=== PATIENT | male | born 2000 | race Caucasian/White ===

== ENCOUNTER 2024-12-22 15:44 | Outpatient (CLI) | payer OTHER, SELFPAY ==
--- NOTE | 2024-12-22 15:30 | RT.EKG_ITS ---
APPROVED REPORT Exam: Resting ECG Reason for Exam: Chest discomfort Patient Location: O HR:74 bpm ECG Measurements Heart Rate 74 AXIS ID 157 P 85 QRSd 96 QRS 86 QT 381 T 76 QTc 423 Conclusion Sinus rhythm...normal P axis, V-rate 50- 99 Normal Electrocardiogram
== END 2024-12-22 15:45 | disposition home or self-care (01) ==
LOC: DI.CM 15:44
PROVIDERS: Visit Provider Nurse Practitioner Family
DX: R07.89 Other chest pain (principal)
CPT/HCPCS: 93010

== ENCOUNTER 2024-12-22 16:32 | Emergency (ER) | payer OTHER, SELFPAY ==
--- NOTE | 2024-12-22 16:30 | RT.EKG_ITS ---
APPROVED REPORT Exam: Resting ECG Reason for Exam: chest pain Patient Location: E HR:82 bpm ECG Measurements Heart Rate 82 AXIS MD 129 P 84 QRSd 94 QRS 88 QT 370 T 67 QTc 432 Conclusion Sinus rhythm...normal P axis, V-rate 60- 99 Probable inferior infarct, old...Q>35mS, II III aVF ST elevation, consider anterolateral injury...ST >0.15mV, I aVL V2-V6 NSR at 82. Normal [place]/Interval. Early repolarization. There are no significant changes compared to prior EKG performed on 12/22/2024 at 15:48.
[2024-12-22 16:42] VITALS: BP 115/68; PULSE 82; RESP 20; TEMP 37.1; O2SAT 97
--- NOTE | 2024-12-22 16:45 | DI.RAD_ITS ---
Exam(s) XR CHEST 2V PA LATERAL EXAM: XR CHEST 2V PA LATERAL CLINICAL HISTORY: Chest pain. TECHNIQUE: 2D digital imaging was performed. COMPARISON: No exams were available for comparison FINDINGS: 2 views: Heart size is normal. The mediastinum is not widened. Lungs are clear. No infiltrates nor pleural effusions. IMPRESSION: No acute pulmonary findings. DATA REPOSITORY: RADIATION DOSE DELIVERED:
--- NOTE | 2024-12-22 17:08 | ED.GENADUL_ITS ---
Discharge Plan Disposition Patient Disposition: Home Condition: Stable Discharge Details Clinical Impression: Cocaine abuse, Myalgia Primary Care Provider: Unknown,Unknown ED Provider: Carla Reddy Home Meds and New Rx's Prescriptions: No Action No Known Home Meds Discharge Instructions Instructions: Cocaine use disorder, Substance Misuse Treatment Additional Instructions: At this time, no evidence for heart attack. I do believe that your symptoms are caused from your recent cocaine and alcohol use. Cocaine use can increase your risk for heart problems. Please call the [facility] to discuss options for outpatient substance abuse treatment. Follow up with primary care provider in 3-5 days. Return to ED sooner if any worsening or concerns. Increase oral fluids. No evidence of abnormal electrolytes today or urinary tract infection. Please take Tylenol or Ibuprofen with food every 4-6 hours as needed for pain and swelling. Stand Alone Forms: Portal Information Referrals: [facility] [Outside] - 2 days Referral Note: Please call to speak with someone about substance abuse Clinical Impression: Cocaine abuse Primary Care Provider [Outside] - 1 week Discharge Data Discharge Date/Time-TO BE ENTERED AT DEPARTURE: 12/22/24 18:36 HPI General Mode of arrival: ambulatory . Date/Time Provider Initiated Documentation: 12/22/24 16:43 . Limitations to Documentation: no limitations . Information obtained by: patient, RN notes reviewed and old records reviewed . HPI Narrative: 24-year-old male presents ER chief with bodyaches, arm weakness patient doing any chest pain he has a follow-up with's pain management for approximately 1 week. Presenting to express care with heart racing, headache, and skin crawling. 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 He also endorses daily alcohol does not use alcohol today and is a daily smoker. EKG performed upon arrival which shows some repolarization abnormalities and ST elevations in the Anteriorlateral leads. Related Data Home Medications Medication Instructions Recorded Confirmed Unknown [No Known Home Meds] 12/22/24 Allergies Allergy/AdvReac Type Severity Reaction Status Date / Time No Known Allergies Allergy Verified 12/22/24 15:26 General Stated Complaint: [facility] [place]: 3 Review of Systems All systems reviewed & are unremarkable except as noted in HPI and below Exam Narrative Exam Narrative: Constitutional: Alert and oriented x3. Appears stated age. Normal body habitus. Head: Normocephalic, no trauma. Eyes: Pupils PERRL, Red reflex noted, EOM's intact. Eyelids symmetrical without lesions, discharge, or swelling. ENT: Bilateral TM's WNL, External ear normal to inspection, no mastoid TTP, swelling, or erythema, Nasal turbinates WNL, no nasal discharge. Normal dentition, Posterior pharynx WNL, no exudate. Chest: RRR, Normal S1, S2, distal pulses intact. Resp: Lungs clear to auscultation bilaterally, no wheezes, rales, or rhonchi. Abdomen: Soft, non-distended, Normoactive bowel sounds all 4 quads. Musculoskeletal: Normal gait, Moves all 4 extremities without difficulty. Skin: No suspicious rashes or lesions. Capillary refill less than 2 sec. Neurologic: Cranial nerves II-XII intact. Alert and oriented x 3. Motor: No deficits noted. Sensory: Intact bilaterally all 4 extremities. Hematologic/Lymphatic: No ecchymosis, no lymphadenopathy. Patient Course Vital Signs Vital signs: Vital Signs Temperature 37.1 C 12/22/24 16:42 Pulse 82 12/22/24 16:42 Respiratory Rate 20 12/22/24 16:42 Blood Pressure 115/68 12/22/24 16:42 Pulse Oximetry 97 12/22/24 16:42 Temperature 37.1 C 12/22/24 16:42 Temperature Source Oral 12/22/24 16:42 Pulse 82 12/22/24 16:42 Respiratory Rate 20 12/22/24 16:42 Blood Pressure 115/68 12/22/24 16:42 Blood Pressure Position Sitting 12/22/24 16:42 Pulse Oximetry 97 12/22/24 16:42 Oxygen Delivery Method Room Air 12/22/24 16:42 Oxygen Flow Rate 0 12/22/24 16:42 Pain Level 5 12/22/24 16:42 Medical Decision Making 24-year-old male presents ER chief with bodyaches, arm weakness patient doing any chest pain he has a follow-up with's pain management for approximately 1 week. Presenting to express care with heart racing, headache, and skin crawling. 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 He also endorses daily alcohol does not use alcohol today and is a daily smoker. EKG performed upon arrival which shows some repolarization abnormalities and ST elevations in the Anteriorlateral leads. Workup ordered including serial troponins, CBC CMP urinalysis, ethyl alcohol level urine drug screen, chest x-ray. 24 mg of aspirin and will consider lorazepam as needed. Initial troponin less than 4, CBC within normal limits, CMP normal limits no electrolyte abnormality. Will plan on discharging patient with instructions to call [facility] for the cocaine use. Patient remained hemodynamically stable throughout the remainder of his stay alert and oriented. This text was generated using [employer] dictation system, please disregard any oddities of phrase or misspellings. Lab Data Lab results reviewed: Yes I reviewed the patient's lab results. Labs: Laboratory Tests Range/Units 12/22/24 12/22/24 12/22/24 17:25 17:26 17:57 WBC (4.4-10.8) 10^3/uL 6.44 RBC (4.36-5.78) 10^6/uL 4.68 Hgb (13.5-17.5) g/dL 14.3 Hct (40.0-50.0) % 42.7 MCV (80-95) fL 91 MCH (27.0-33.0) pg 30.6 MCHC (32.0-36.0) % 33.5 RDW (11.8-14.1) % 13.0 Plt Count (130-400) 10^3/uL 273 MPV (8.0-11.0) fL 9.2 Immature Gran % % 0.2 Neutrophils % % 64.1 Lymphocytes % % 23.8 Monocytes % % 6.5 Eosinophils % % 4.2 Basophils % % 1.2 Nucleated RBC % (0.0-0.3) % 0.0 Absolute Neutrophils (1.2-6.7) 10^3/uL 4.13 Absolute Lymphocytes (1.2-3.4) 10^3/uL 1.53 Absolute Monocytes (0.1-0.8) 10^3/uL 0.42 Absolute Eosinophils (0.0-0.7) 10^3/uL 0.27 Absolute Basophils (0.0-0.2) 10^3/uL 0.08 Sodium (136-145) mmol/L 143 Potassium (3.5-5.1) mmol/L 3.6 Chloride (98-107) mmol/L 106 Carbon Dioxide (21.0-32.0) mmol/L 27.3 Anion Gap (3-11) mmol/L 9.7 BUN (7-18) mg/dL 12 Creatinine (0.70-1.30) mg/dL 0.9 Est GFR (CKD-EPI 2020) (mL/min/1.73m2) 123.84 Glucose (74-106) mg/dL 99 Calcium (8.5-10.1) mg/dL 8.5 Magnesium (1.8-2.4) mg/dL 2.1 Total Bilirubin (0.2-1.0) mg/dL 0.8 AST (15-37) U/L 15 ALT (16-63) U/L 21 Alkaline Phosphatase (46-116) U/L 66 Troponin I (<or=76) ng/L 4 Cancelled Total Protein (6.4-8.2) g/dL 7.1 Albumin (3.4-5.0) g/dL 4.3 Urine Color (Yellow) Yellow Urine Clarity (Clear) Clear Urine pH (5-8) 6.5 Ur Specific [place] (1.005-1.025) 1.025 Urine Protein (Neg-Trace) mg/dL Negative Urine Ketones (Negative) mg/dL Negative Urine Blood (Negative) Negative Urine Nitrite (Negative) Negative Urine Bilirubin (Negative) Negative Urine Urobilinogen (Up to 0.2) mg/dL 1.0 H Ur Leukocyte Esterase (Negative) Negative Urine Glucose (Negative) mg/dL Negative Ethyl Alcohol (<10) mg/dL < 3.0 Range/Units 12/22/24 19:57 WBC (4.4-10.8) 10^3/uL RBC (4.36-5.78) 10^6/uL Hgb (13.5-17.5) g/dL Hct (40.0-50.0) % MCV (80-95) fL MCH (27.0-33.0) pg MCHC (32.0-36.0) % RDW (11.8-14.1) % Plt Count (130-400) 10^3/uL MPV (8.0-11.0) fL Immature Gran % % Neutrophils % % Lymphocytes % % Monocytes % % Eosinophils % % Basophils % % Nucleated RBC % (0.0-0.3) % Absolute Neutrophils (1.2-6.7) 10^3/uL Absolute Lymphocytes (1.2-3.4) 10^3/uL Absolute Monocytes (0.1-0.8) 10^3/uL Absolute Eosinophils (0.0-0.7) 10^3/uL Absolute Basophils (0.0-0.2) 10^3/uL Sodium (136-145) mmol/L Potassium (3.5-5.1) mmol/L Chloride (98-107) mmol/L Carbon Dioxide (21.0-32.0) mmol/L Anion Gap (3-11) mmol/L BUN (7-18) mg/dL Creatinine (0.70-1.30) mg/dL Est GFR (CKD-EPI 2020) (mL/min/1.73m2) Glucose (74-106) mg/dL Calcium (8.5-10.1) mg/dL Magnesium (1.8-2.4) mg/dL Total Bilirubin (0.2-1.0) mg/dL AST (15-37) U/L ALT (16-63) U/L Alkaline Phosphatase (46-116) U/L Troponin I (<or=76) ng/L Cancelled Total Protein (6.4-8.2) g/dL Albumin (3.4-5.0) g/dL Urine Color (Yellow) Urine Clarity (Clear) Urine pH (5-8) Ur Specific [place] (1.005-1.025) Urine Protein (Neg-Trace) mg/dL Urine Ketones (Negative) mg/dL Urine Blood (Negative) Urine Nitrite (Negative) Urine Bilirubin (Negative) Urine Urobilinogen (Up to 0.2) mg/dL Ur Leukocyte Esterase (Negative) Urine Glucose (Negative) mg/dL Ethyl Alcohol (<10) mg/dL PFSH All Active Problems (Updated 12/22/24 @ 18:18 by Carla Reddy NP) Myalgia (Acute) Cocaine abuse (Acute) Social History Smoking/Tobacco Use Status: Current every day Tobacco Type: cigarettes Smoking risk assessment performed?: Yes Alcohol Intake: current Drug use: Daily Substance use type: marijuana, crack/cocaine, opiates and other Details: also so mushrooms. patient had cocaine Saturday and Xanax Saturday. also combine everything with alcohol Do you feel safe at home: Yes Do you feel safe in your relationship?: Yes PAWSS Have you Been Recently Intoxicated or Drunk Within the Last 30 days?: Yes Have you Ever Experienced Previous Episodes of Alcohol Withdrawal?: No Have you ever Experienced Withdrawal Seizures?: No Have you ever Experienced Delirium Tremens(DT)s?: No Have you ever undergone Alcohol Rehabilitation Treatment (i.e, inpt ot outpatient treatment programs)?: Yes Have you ever Experienced Blackouts?: Yes Have you ever Combined Alcohol with other Downers within the last 90 days?: Yes Have you ever Combined Alcohol with any other Substance of Abuse during the last 90 days?: Yes Positive Blood Alcohol level on Presentation? [PCS.BAL]: Yes Evidence of Increased Autonomic Activity (i.e. HR>120, tremor, sweating, agitation, nausea)?: No Result: 6
[2024-12-22] MEDS: Aspirin 81 MG CHEW 324 MG CH (17:18)
[2024-12-22 17:37] LABS: Abs Immature Grans 0.01 10^3/uL (0.0-0.06); HCT 42.7 % (40.0-50.0); HGB 14.3 g/dL (13.5-17.5); Immature Grans % 0.2 %; MCH 30.6 pg (27.0-33.0); MCHC 33.5 % (32.0-36.0); MCV 91 fL (80-95); MPV 9.2 fL (8.0-11.0); Platelet Count 273 10^3/uL (130-400); RBC 4.68 10^6/uL (4.36-5.78); RDW 13.0 % (11.8-14.1); RDW-SD 43.5 fL; WBC 6.44 10^3/uL (4.4-10.8)
[2024-12-22 17:42] LABS: Glucose Negative (Negative)
[2024-12-22 17:56] LABS: ALT 21 U/L (16-63); AST 15 U/L (15-37); Albumin 4.3 g/dL (3.4-5.0); Alkaline Phosphatase 66 U/L (46-116); Anion Gap 9.7 mmol/L (3-11); BUN 12 mg/dL (7-18); Bilirubin, Total 0.8 mg/dL (0.2-1.0); CO2 27.3 mmol/L (21.0-32.0); Calcium 8.5 mg/dL (8.5-10.1); Chloride 106 mmol/L (98-107); Glucose 99 mg/dL (74-106); Magnesium 2.1 mg/dL (1.8-2.4); Potassium 3.6 mmol/L (3.5-5.1); Sodium 143 mmol/L (136-145); Total Protein 7.1 g/dL (6.4-8.2); Troponin I 4 ng/L (<or=76)
[2024-12-22] MEDS: LORazepam 0.5 MG TAB PO (18:03)
[2024-12-22 18:14] VITALS: RESP 14
[2024-12-22 18:33] VITALS: BP 116/70; PULSE 57; RESP 18; O2SAT 98
== END 2024-12-22 18:36 | disposition home or self-care (01) ==
PROVIDERS: Emergency Provider Registered Nurse Emergency
DX: M79.18 Myalgia, other site; F10.90 Alcohol use, unspecified, uncomplicated; F14.10 Cocaine abuse, uncomplicated
CPT/HCPCS: 99283; 99284; 80053; 93005; 71046; 80320; 81003; 83735; 84484; 85025; 93010